=== PATIENT | male | born 1960 | race African-American/Black ===

== ENCOUNTER 2016-09-23 16:36 | Emergency (ER) | payer OTHER ==
[~2016-09-23] VITALS: Ht 170.2 cm; Wt 71.3 kg
[2016-09-23 18:00] LABS: EOSINOPHIL (%) 0.7 % (0-5); HEMATOCRIT 42.1 % (38.0-50.0); IMMATURE GRANULOCYTE (%) 0.3 % (0.0-0.7); INSTRUMENT ABS NEUTROPHIL CT 3.5 K/uL; LYMPHOCYTE COUNT 1.6 K/uL (1.0-2.8); MCH 26.8 PG (29.0-34.0); MCHC 32.3 G/DL (30.0-36.0); MONOCYTE (%) 11.1 % (3-12); MONOCYTE COUNT 0.7 K/uL (0-0.8); NEUTROPHIL (%) 59.9 % (45-76); NEUTROPHIL COUNT 3.5 K/uL (1.8-6.4); RBC DIS.WIDTH-SD 42.3 % (39-53); RED BLOOD COUNT 5.07 M/uL (4.00-5.50); WHITE BLOOD COUNT 5.9 K/uL (4.1-10.2)
[2016-09-23 18:08] LABS: CHLORIDE 110 mEq/L (99-109); SODIUM 140 mEq/L (136-147)
[2016-09-23 18:10] LABS: GLUCOSE 84 mg/dL (70-99)
[2016-09-23 18:11] LABS: ANION GAP 8 MEQ/L (2-14)
[2016-09-23 18:14] LABS: GFR ESTIMATE (CALCULATED) > 59 mL/min/
[2016-09-23 18:15] LABS: UREA NITROGEN (BUN) 15 mg/dL (9-23)
[2016-09-23 18:20] LABS: TROP-I INTERPRETATION NEGATIVE; TROPONIN-I < 0.01 ng/mL (0.0-0.30)
[2016-09-23 18:45] LABS: MEAN PLAT.VOLUME 11.6 uM^3 (9.0-12.4); PLAT.SUFFICIENCY DECREASED; PLATELET COUNT 79 K/uL (156-360)
[2016-09-23 19:27] VITALS: BP 152/100
== END 2016-09-23 19:28 | disposition home or self-care (01) ==
LOC: EME 16:36
PROVIDERS: Emergency Medicine
DX: R51 Headache (principal); R42 Dizziness and giddiness; H53.2 Diplopia; I10 Essential (primary) hypertension; Z79.891 Long term (current) use of opiate analgesic; Z72.0 Tobacco use
CPT/HCPCS: 70450; 80048; 84484; 85025; 93005; 99281; 99285